=== PATIENT | male | born 1960 | race Caucasian/White ===

== ENCOUNTER 2023-06-15 14:37 | Emergency (ER) | payer OTHER ==
[~2023-06-15] VITALS: Ht 180.3 cm; Wt 103.9 kg
[2023-06-15 14:55] VITALS: BP 133/83; PULSE 84; RESP 20; O2SAT 97
[2023-06-15 16:08] LABS: RAPID GROUP A STREP negative (NEGATIVE)
[2023-06-15 16:18] LABS: SARS-CoV-2, RNA, NAAT NEGATIVE SARS CoV-2 (NEGATIVE)
[2023-06-15 16:20] LABS: INFLUENZA TYPE A Negative For Type A (NEGATIVE); INFLUENZA TYPE B Negative For Type B (NEGATIVE)
[2023-06-15] MEDS ORDERED: GUAI600T50 PO (17:24)
[2023-06-15] MEDS ORDERED: GUAIFENESIN 600 MG TABLET.ER PO SCH (17:30)
== END 2023-06-15 17:40 | disposition home or self-care (01) ==
LOC: EDH 14:37
DX: B34.9 Viral infection, unspecified (principal); R05.9 Cough, unspecified; E11.9 Type 2 diabetes mellitus without complications; F41.9 Anxiety disorder, unspecified; Z20.822 Contact with and (suspected) exposure to COVID-19
CPT/HCPCS: 99283; 87635; 87880; 87804 ×2; C9803